=== PATIENT | male | born 1945 | race Hispanic/Latino ===

== ENCOUNTER 2019-02-13 23:00 | Observation (INO) | payer OTHER ==
[~2019-02-13] VITALS: Ht 162.6 cm; Wt 62.6 kg
[2019-02-13 23:24] LABS: BASOPHILS # (AUTO) 0.1 (0.0-0.1); BASOPHILS % 0.6 % (0.0-1.0); EOSINOPHILS # (AUTO) 0.5 (0.0-0.4); EOSINOPHILS % 5.2 % (0.0-6.0); HEMATOCRIT 43.4 % (38.2-49.6); HEMOGLOBIN 13.5 g/dL (14.0-18.0); LYMPHOCYTES # (AUTO) 2.7 (1.0-3.2); LYMPHOCYTES % 31.3 % (18.0-39.1); MEAN CORPUSCULAR HEMOGLOBIN 31.3 pg (28-32); MEAN CORPUSCULAR HGB CONC 31.1 g/dL (31-35); MEAN CORPUSCULAR VOLUME 100.5 fL (81-99); MONOCYTES # (AUTO) 0.7 (0.2-0.8); MONOCYTES % 8.4 % (4.4-11.3); NEUTROPHILS # (AUTO) 4.6 (2.1-6.9); PLATELET COUNT 249 x10e3/uL (140-360); RED BLOOD COUNT 4.32 x10e6/uL (4.3-5.7); RED CELL DISTRIBUTION WIDTH 13.4 % (11.7-14.4)
[2019-02-13 23:42] LABS: ALANINE AMINOTRANSFERASE 20 IU/L (0-55); ALBUMIN 4.1 g/dL (3.5-5.0); ALKALINE PHOSPHATASE 85 IU/L (40-150); ANION GAP 14.9 mmol/L (8-16); BLOOD UREA NITROGEN 15 mg/dL (7-26); BUN/CREATININE RATIO 15 (6-25); CALCIUM 10.3 mg/dL (8.4-10.2); CARBON DIOXIDE 26 mmol/L (22-29); CHLORIDE 101 mmol/L (98-107); CREATINE KINASE 78 IU/L (30-200); CREATININE, SERUM 0.98 mg/dL (0.72-1.25); EST GLOMERULAR FILTRATION RATE > 60 ML/MIN (60-); GLUCOSE 135 mg/dL (74-118); POTASSIUM 3.9 mmol/L (3.5-5.1); SODIUM 138 mmol/L (136-145)
--- NOTE | 2019-02-13 23:59 | Diagnostic Imaging Report ---
EXAMINATION: CHEST SINGLE (PORTABLE) INDICATION: Chest pain COMPARISON: None FINDINGS: AP view TUBES and LINES: None. LUNGS: Hyperinflated lungs. Subtle bibasilar haziness. Prominent central pulmonary vasculature. Calcified granuloma in the left midlung. Subtle asymmetric haziness in the right lower lung field. PLEURA: No pleural effusion or pneumothorax. HEART AND MEDIASTINUM: The cardiomediastinal silhouette is unremarkable. BONES AND SOFT TISSUES: No acute osseous lesion. Soft tissues are unremarkable. Degenerative changes in the shoulders and spine. UPPER ABDOMEN: No free air under the diaphragm. IMPRESSION: 1. Pulmonary vascular congestion. 2. Lungs are hyperinflated, possibly due to emphysema. 3. Subtle asymmetric haziness in the right lower lung field, pneumonia is a consideration in the appropriate clinical setting. 4. Subtle bibasilar haziness can be seen with atelectasis/scarring. Signed by: Devin Anderson DO on 02/13/2019 11:56 PM
[2019-02-14] MEDS ORDERED: ONDANSETRON HCL INJ 2MG/ML 2ML 2 MG/ML VIAL IV STA (00:02)
[2019-02-14] MEDS ORDERED: ONDANSETRON HCL INJ 2MG/ML 2ML 2 MG/ML VIAL ONE (00:10)
[2019-02-14] MEDS ORDERED: MORPHINE SULFATE INJ 4 MG/ML INJ 1ML ONE (00:10)
[2019-02-14] MEDS ORDERED: MORPHINE SULFATE INJ 4 MG/ML INJ 1ML IV PRN ×2 (00:15→00:45)
[2019-02-14] MEDS ORDERED: MORPHINE SULFATE INJ 4 MG/ML INJ 1ML IV ONE (00:15)
[2019-02-14] MEDS ORDERED: MORPHINE SULFATE 5 MG/ML VIAL IV ONE (00:15)
[2019-02-14] MEDS ORDERED: SODIUM CHLORIDE 0.9% 1000ML 1,000 ML IV SCH (00:43)
[2019-02-14] MEDS ORDERED: ASPIRIN 81 MG CHEW TAB PO ONE (00:45)
[2019-02-14] MEDS ORDERED: ONDANSETRON HCL INJ 2MG/ML 2ML 2 MG/ML VIAL IV PRN (00:45)
--- OUTSIDE RECORDS SUMMARY | 2019-02-14 01:19 | XMS REPORT ---
Author Author [facility] Address Unknown Phone Unavailable Care Team Providers Care Video Control Operator Name Role Phone RU LACY Unavailable Unavailable Problems This patient has no known problems. Allergies, Adverse Reactions, Alerts This patient has no known allergies or adverse reactions. Medications This patient has no known medications. Results Test Description Test Time Test Comments Text Results Atomic Results Result Comments CHEST SINGLE (PORTABLE) 2019-02-13 23:53:[address] [address] Patient Name: LYNN RAMIREZ MR #: [id number] : 1945 Age/Sex: 73/M Req #: [id number] Adm Physician: Ordered by: RU LACY DO Report #: [id number] Location: ER Room/Bed: Procedure: [id number] DX/CHEST SINGLE (PORTABLE) Exam Date: 02/13/19 Exam Time: 2320 REPORT STATUS: Signed EXAMINATION: CHEST SINGLE (PORTABLE) INDICATI ON: Chest pain COMPARISON: None FINDINGS: AP view TUBES and LINES: None. LUNGS: Hyperinflated lungs. Subtle bibasilar haziness. Prominent central pulmonary vasculature. Calcified granuloma in the left midlung. Subtle asymmetric haziness in the right lower lung field. PLEURA: No pleural effusion or pneumothorax. HEART AND MEDIASTINUM: The cardiomediastinal silhouette is unremarkable. BONES AND SOFT TISSUES: No acute osseous lesion. Soft tissues are unremarkable. Degenerative changes in the shoulders and spine. UPPER ABDOMEN: No free air under the diaphragm. IMPRESSION: 1. Pulmonary vascular congestion. 2. Lungs are hyperinflated, possibly due to emphysema. 3. Subtle asymmetric haziness in the right lower lung field, pneumonia is a consideration in the appropriate clinical setting. 4. Subtle bibasilar haziness can be seen with atelectasis/scarring. Signed by: Devin Anderson DO on 02/13/2019 11:56 PM Dictated By: DEVIN ANDERSON DO [id number] Transcribed By: SALLIE on 02/13/194 COPY TO: RU LACY DO
[2019-02-14 07:31] VITALS: BP 170/78
[2019-02-14 07:34] LABS: CREATINE KINASE MB 2.9 ng/mL (0-5.0)
[2019-02-14 09:40] LABS: CHOL/HDL RATIO 5.4 (3.9-4.7)
[2019-02-14 11:25] VITALS: BP 130/74
[2019-02-14 14:02] VITALS: BP 130/74
--- NOTE | 2019-02-14 14:43 | History and Physical ---
CHIEF COMPLAINT: Atypical chest pain, muscular pain. HISTORY OF PRESENT ILLNESS: The patient is a 73-year-old male, generally healthy, complained of some left-sided chest pain. The patient is also having some upper back pain area. The patient is otherwise stable. No radiating pain. The patient is comfortable. He is without any pain at this time. Cardiac enzyme has been negative. The patient is stable. PAST MEDICAL HISTORY: None. PAST SURGICAL HISTORY: Noncontributory. SOCIAL HISTORY: The patient does not smoke or use alcohol. No regular drug. ALLERGIES: NO KNOWN ALLERGIES. HOME MEDICATIONS: None. PHYSICAL EXAMINATION: VITAL SIGNS: Temperature is 98, blood pressure is 170/78. The patient is on normal saline at 125 mL an hour. Pulse rate 59 and respirations 18. GENERAL: The patient is not in acute distress. HEENT: Normocephalic and atraumatic. Pupils reactive. Anicteric. NECK: Grossly supple. PULMONARY: Diminished breath sounds without any wheezing or rales. CARDIOVASCULAR: S1 and S2. Regular rate and rhythm. ABDOMEN: Soft, nontender, non-distention. EXTREMITIES: No cyanosis or edema. NEUROLOGIC: No gross focal deficit. LABORATORY DATA: Otherwise unremarkable. Cardiac enzymes are negative. IMPRESSION: Atypical chest pain with normal EKG except for bradycardia. Normal cardiac enzyme and lab work. PLAN: Echocardiogram. The patient will see Dr. Alexander Lombardi for Cardiology consultation. Discussed with the patient and family at length. MD JENNIFER Patrick/CHANDRAKANT /[id number]
[2019-02-14 14:44] VITALS: BP 130/74
[2019-02-14 15:34] VITALS: BP 134/79
[2019-02-14 16:04] LABS: CREATINE KINASE MB 1.7 ng/mL (0-5.0)
[2019-02-14] MEDS ORDERED: ACETAMINOPHEN 325 MG TAB PO PRN (19:30)
--- NOTE | 2019-02-14 19:30 | NUR ---
Called Dr. James to request medication for pain. Received order from . See EMAR.
--- NOTE | 2019-02-14 19:39 | NUR ---
Walking rounds. Patient alert and oriented.No signs of distress noted. Patient family at bedside. Patient call brink within reach. Patient instructed to call for assistance. Patient verbalized understanding.
[2019-02-14 20:00] VITALS: BP 134/73
--- NOTE | 2019-02-14 22:23 | NUR ---
Cardiology Consult Dictation# [id number]
[2019-02-15] VITALS: BP 128/71
[2019-02-15 04:00] VITALS: BP 160/81
--- NOTE | 2019-02-15 04:41 | Consultation ---
DATE OF CONSULTATION: 02/14/2019 Cardiology Consultation REQUESTING PHYSICIAN: Car James MD REASON FOR CONSULTATION: Chest pain. HISTORY OF PRESENT ILLNESS: This is a 73-year-old man without significant past medical history, who presented with complaints of chest pain. He reports his chest pain began Monday. He reports it was 7/10 in severity and associated with palpitations, but was unable to characterize the pain. He denied any radiation, shortness of breath, nausea, or diaphoresis, but does note the pain was worse with lying down. Given his continued pain, he presented to the ER for further evaluation. He denies any edema, orthopnea, or PND. REVIEW OF SYSTEMS: Negative except as per HPI. PAST MEDICAL HISTORY: Denies. PAST SURGICAL HISTORY: Denies. ALLERGIES: PLEASE SEE EMR. MEDICATIONS: Please see medication list. SOCIAL HISTORY: He endorses remote history of tobacco use. No alcohol or illicit drugs. PHYSICAL EXAMINATION: VITAL SIGNS: Temperature 98.6 degrees, pulse 50, respiratory rate 19, blood pressure 170/78, and oxygen saturation 97%. GENERAL: Elderly man, in no acute distress. Well developed and well nourished. HEENT: Normocephalic, atraumatic. Pupils equal. No scleral icterus. NECK: Supple. No thyromegaly or cervical lymphadenopathy. No carotid bruits. LUNGS: Clear to auscultation bilaterally. No wheezes or crackles. HEART: Normal rate, regular rhythm. No murmur. Normal S1, S2. ABDOMEN: Soft, nontender. EXTREMITIES: No edema. NEUROLOGIC: Nonfocal exam. LABORATORY DATA: WBC 8.59, hemoglobin 13.5, hematocrit 43.4, platelets 249. Sodium 138, potassium 3.9, chloride 101, CO2 of 26, BUN 15, creatinine 0.98. Troponin 0.003. Cholesterol 207, triglycerides 237, LDL 122, HDL 38. EKG; marked sinus bradycardia with sinus arrhythmia. Telemetry; sinus bradycardia. IMPRESSION: 1. Chest pain. 2. Sinus bradycardia. 3. Hyperlipidemia. RECOMMENDATIONS: 1. The patient is ruled out for myocardial infarction with serial cardiac biomarkers. Given risk factors, recommend ischemic evaluation with nuclear stress test, echocardiogram to evaluate for structural heart disease. We would recommend initiation of statin therapy given hyperlipidemia. Further recommendations pending test results. 2. Plan to exercise treadmill patient during stress to evaluate for chronotropic incompetence as well, although the patient appears to be asymptomatic from a heart rate standpoint at this time. Thank you for this consult. We will continue to follow. Olga Gonzalez MD ABS/MODL /[id number]
[2019-02-15 08:05] VITALS: BP 145/85
[2019-02-15 08:52] VITALS: BP 145/85
[2019-02-15] MEDS ORDERED: REGADENOSON 0.4 MG/5 ML SYR IV ONE (10:43)
[2019-02-15 12:32] VITALS: BP 154/84
--- NOTE | 2019-02-15 13:19 | Diagnostic Imaging Report ---
EXAM: CT Chest WITHOUT intravenous contrast 02/15/2019 9:00 AM INDICATION: Chest pain COMPARISON: Chest radiograph of 02/13/2019 TECHNIQUE: Chest was scanned utilizing a multidetector helical scanner from the lung apex through the level of the adrenal glands without administration of IV contrast. Coronal and sagittal reformations were obtained. Routine protocol was performed. IV CONTRAST: None RADIATION DOSE: Total DLP: 382.2 mGy*cm. Dose modulation, iterative reconstruction, and/or weight based adjustment of the mA/kV was utilized to reduce the radiation dose to as low as reasonably achievable. COMPLICATIONS: None FINDINGS: LINES/ TUBES: None. LUNGS AND AIRWAYS: The central airways are patent. No focal consolidation. No pulmonary edema. Mild bibasilar dependent subsegmental atelectasis. No suspicious pulmonary nodules. Scattered bilateral subcentimeter calcified granulomas. PLEURA: The pleural spaces are clear. HEART AND MEDIASTINUM: The thyroid gland appears unremarkable. No supraclavicular lymphadenopathy. Subcentimeter calcified mediastinal and bilateral hilar lymph nodes. The heart is not enlarged. No pericardial effusion. Mild scattered atherosclerotic calcifications of the aorta. UPPER ABDOMEN: Limited noncontrast views of the upper abdomen demonstrate a posterior right hepatic cyst and no other focal abnormality of the partially visualized liver, spleen, pancreas, adrenals, or upper most kidneys. BONES: No acute osseous injury. No suspicious lytic or blastic lesions. Mild degenerative changes of the visualized spine. SOFT TISSUES: Unremarkable. IMPRESSION: No acute cardiopulmonary process. Subcentimeter calcified mediastinal and bilateral hilar lymph nodes. Signed by: Satinder Castillo MD on 02/15/2019 1:15 PM
[2019-02-15 16:27] VITALS: BP 131/81
--- NOTE | 2019-02-15 20:56 | Myoview Stress Test ---
DATE OF STUDY: 02/14/2019 14:07:00 Stress Test - Treadmill ONLY PROCEDURE TITLE: Rest/stress single isotope SPECT imaging with exercise stress and gated SPECT imaging. INDICATION: Chest pain. PROCEDURE IN DETAIL: The patient performed treadmill exercise using a Kapil protocol, exercising for 8 minutes and 1 second to stage III and completed estimated workload of 10.1 metabolic equivalents (METS). The heart rate was 62 beats per minute at rest, increased to 138 beats per minute at peak exercise, which was 90% of the maximum predicted heart rate. The resting blood pressure was 156/75 mmHg and increased to 175/79 mmHg, which is a normal response. The resting electrocardiogram demonstrated normal sinus rhythm. There were no ST-segment changes suggestive of myocardial ischemia. Myocardial perfusion imaging was performed at rest following injection of 10.9 mCi of tetrofosmin. At peak exercise, the patient was injected with 32.1 mCi of tetrofosmin and exercise was continued for 1 minute. Gated post-stress tomographic imaging was performed. FINDINGS: Left ventricular cavity is noted to be normal size on the rest and stress studies. Attenuation artifact was absent. SPECT imaging demonstrates homogeneous tracer distribution throughout the myocardium. Gated SPECT imaging reveals normal myocardial thickening and wall motion. Left ventricular ejection fraction was calculated to be greater than 70%. IMPRESSION: Myocardial perfusion imaging is normal. Overall, left ventricular systolic function was normal without regional wall motion abnormalities. Olga Gonzalez MD ABS/MODL /[id number]
--- NOTE | 2019-02-15 21:41 | Progress Note ---
DATE: 02/15/2019 Cardiology Progress Note SUBJECTIVE: The patient denies chest pain or shortness of breath. He was seen for treadmill nuclear stress test today. OBJECTIVE: VITAL SIGNS: Temperature 96.8 degrees, pulse 51, respiratory rate 18, blood pressure 145/85, and oxygen saturation 98% on room air. GENERAL: Elderly man, in no acute distress, awake and alert. LUNGS: Clear to auscultation bilaterally. No wheezes or crackles. CARDIOVASCULAR: Normal rate, regular rhythm. No murmur. Normal S1 and S2. ABDOMEN: Soft and nontender. EXTREMITIES: No edema. CARDIAC MEDICATIONS: None. LABORATORY DATA: None today. TELEMETRY: Sinus bradycardia. IMPRESSION: 1. Chest pain. 2. Sinus bradycardia. 3. Hyperlipidemia. RECOMMENDATIONS: The patient ruled out for myocardial infarction with serial cardiac biomarkers. Exercise nuclear stress test was without evidence of ischemia. The patient had appropriate chronotropic response to exertion and normal LV systolic function. No further cardiac evaluation is indicated at this time. Recommend initiation of statin therapy for treatment of hyperlipidemia. Echocardiogram with normal LV systolic function. No significant valve abnormalities. Thank you for this consult. We will continue to follow. Olga Gonzalez MD ABS/MODL /[id number]
== END 2019-02-15 20:15 | disposition home or self-care (01) ==
LOC: ER 23:00 → ERHOLD 02-14 01:17 → IMCU 02-14 06:42
PROVIDERS: ADMIT Internal Medicine; ATTEND Internal Medicine
DX: R07.89 Other chest pain (principal); M79.18 Myalgia, other site; R00.1 Bradycardia, unspecified; E78.5 Hyperlipidemia, unspecified; R94.31 Abnormal electrocardiogram [ECG] [EKG]
CPT/HCPCS: 36415 ×2; 71045; 71250; 78452; 80053; 80061; 82550 ×2; 82553 ×2; 83880; 84484 ×2; 85025; 85379; 93005; 93017; 93306; 99284; A9502; G0378 ×2; J2270 ×2; J2405